=== PATIENT | male | born 1950 | race Caucasian/White ===

== ENCOUNTER 2019-03-06 11:27 | Inpatient (IN) | payer MEDICARE, MEDICAID ==
[2019-03-06 12:18] LABS: ADD MAN DIFF? NO
[2019-03-06 12:25] LABS: WHITE BLOOD COUNT 13.2 10^3/ul (4.8-10.8)
[2019-03-06 12:25] LABS: BASOPHIL # 0.1 10^3/ul (0.0-0.1); BASOPHILS % 0.5 % (0.0-2.0); EOSINOPHILS # 0.3 10^3/ul (0.0-0.5); EOSINOPHILS % 2.1 % (0.0-7.0); HEMATOCRIT 35.9 % (42.0-52.0); HEMOGLOBIN 11.9 g/dl (14.0-18.0); LYMPHOCYTES # 1.1 10^3/ul (0.8-2.9); LYMPHOCYTES % 8.1 % (15.0-51.0); MEAN CORPUSCULAR HEMOGLOBIN 30.7 pg (29.0-33.0); MEAN CORPUSCULAR HGB CONC 33.1 g/dl (32.0-37.0); MEAN CORPUSCULAR VOLUME 92.8 fl (82.0-101.0); MEAN PLATELET VOLUME 10.1 fl (7.4-10.4); MONOCYTE # 1.1 10^3/ul (0.3-0.9); NEUTROPHIL # 10.5 10^3/ul (1.6-7.5); NEUTROPHILS % 79.9 % (39.0-77.0); PLATELET COUNT 263 10^3/UL (140-415); RED BLOOD COUNT 3.87 10^6/ul (4.70-6.10); RED CELL DISTRIBUTION WIDTH 12.8 % (11.5-14.5)
[2019-03-06] MEDS: PIPER-TAZO 3.375 GM IV (PMX) 100 ML IVPB ×2 (12:26→20:02)
[2019-03-06 12:46] LABS: INR 1.04; PROTIME 13.7 Sec (11.9-14.9); PT RATIO 1.1
[2019-03-06 12:47] LABS: ALANINE AMINOTRANSFERASE 19 IU/L (13-69); ALBUMIN/GLOBULIN RATIO 0.97; ALKALINE PHOSPHATASE 120 IU/L (42-121); ANION GAP 12 (5-13); ASPARTATE AMINO TRANSFERASE 28 IU/L (15-46); BILIRUBIN,INDIRECT 0.1 mg/dl (0-1.1); BILIRUBIN,TOTAL 0.1 mg/dl (0.2-1.3); BLOOD UREA NITROGEN 21 mg/dl (7-20); CALCIUM 9.3 mg/dl (8.4-10.2); CARBON DIOXIDE 26 mmol/L (21-31); CHLORIDE 100 mmol/L (97-110); CREATININE 0.72 mg/dl (0.61-1.24); Estimated GFR > 60 mL/min (>60); GLUCOSE 256 mg/dl (70-220); PARTIAL THROMBOPLASTIN TIME 39.8 Sec (23.0-35.0); POTASSIUM 4.4 mmol/L (3.5-5.1); SODIUM 138 mmol/L (135-144); TOTAL PROTEIN 8.1 g/dl (6.1-8.1)
[2019-03-06 12:57] LABS: TROPONIN-I < 0.012 ng/ml (0.000-0.120)
[2019-03-06] MEDS: VANCOMYCIN 1 GM (PMX) 250 ML IVPB (13:26)
[2019-03-06] MEDS ORDERED: NACL 0.9% 3 ML SYG IV (17:00)
[2019-03-06] MEDS ORDERED: ZOLPIDEM 5 MG TAB PO (17:00)
[2019-03-06] MEDS ORDERED: ACETAMINOPHEN 325 MG TAB PO (17:00)
[2019-03-06] MEDS ORDERED: VANCOMYCIN IV PER PHARMACY XX (17:00)
[2019-03-06] MEDS ORDERED: ONDANSETRON 4 MG INJ IV (17:00)
[2019-03-06] MEDS ORDERED: HYDROCODONE/APAP (5/325) TAB PO (17:00)
[2019-03-06] MEDS ORDERED: DOCUSATE SODIUM 100 MG CAP PO (17:00)
[2019-03-06] MEDS ORDERED: morphine 2 MG INJ IV (17:00)
[2019-03-06] MEDS: INSULIN ASPART [NOVOLOG] 3 ML PEN SC ×3 (18:00→20:27)
[2019-03-06] MEDS ORDERED: GLUCOSE GEL 15 GRAM TUBE BUCCAL (20:00)
[2019-03-06] MEDS ORDERED: GLUCAGON 1 MG INJ IM (20:00)
[2019-03-06] MEDS ORDERED: DEXTROSE 50% 50 ML SYRINGE IV ×2 (20:00)
[2019-03-06] MEDS ORDERED: GLUCOSE GEL 15 GRAM TUBE PO ×2 (20:00)
[2019-03-06] MEDS: INSULIN GLARGINE [LANTus] (100 UNITS/ML) SYG SC (20:26)
[2019-03-06] MEDS ORDERED: PENDING SANTYL ORDER FOR WOUND CARE XX (22:00)
[2019-03-06] MEDS: ATORVASTATIN 10 MG TAB PO (22:17)
[2019-03-06] MEDS: HEPARIN 5,000 UNIT/1 ML VIAL SC (22:18)
[2019-03-06] MEDS: VANCOMYCIN HCL 1.25 GM in SOD CHLORIDE 0.9% 250 ML IVPB (22:28)
[2019-03-07] MEDS: PIPER-TAZO 3.375 GM IV (PMX) 100 ML IVPB ×4 (01:37→17:33)
[2019-03-07] MEDS: ACCU-CHEK XX (02:24)
[2019-03-07 05:44] LABS: ADD MAN DIFF? NO
[2019-03-07 05:50] LABS: WHITE BLOOD COUNT 10.3 10^3/ul (4.8-10.8)
[2019-03-07 05:50] LABS: BASOPHIL # 0.1 10^3/ul (0.0-0.1); BASOPHILS % 0.6 % (0.0-2.0); EOSINOPHILS # 0.4 10^3/ul (0.0-0.5); EOSINOPHILS % 3.9 % (0.0-7.0); HEMATOCRIT 34.3 % (42.0-52.0); HEMOGLOBIN 11.4 g/dl (14.0-18.0); LYMPHOCYTES # 1.4 10^3/ul (0.8-2.9); MEAN CORPUSCULAR HEMOGLOBIN 30.8 pg (29.0-33.0); MEAN CORPUSCULAR HGB CONC 33.2 g/dl (32.0-37.0); MEAN CORPUSCULAR VOLUME 92.7 fl (82.0-101.0); MONOCYTE # 0.9 10^3/ul (0.3-0.9); MONOCYTES % 8.6 % (0.0-11.0); NEUTROPHIL # 7.3 10^3/ul (1.6-7.5); NEUTROPHILS % 71.4 % (39.0-77.0); PLATELET COUNT 284 10^3/UL (140-415); RED CELL DISTRIBUTION WIDTH 12.6 % (11.5-14.5)
[2019-03-07 06:22] LABS: ANION GAP 7 (5-13); BLOOD UREA NITROGEN 12 mg/dl (7-20); CARBON DIOXIDE 26 mmol/L (21-31); CHLORIDE 106 mmol/L (97-110); CREATININE 0.56 mg/dl (0.61-1.24); Estimated GFR > 60 mL/min (>60); GLUCOSE 84 mg/dl (70-220); PHOSPHORUS 3.5 mg/dl (2.5-4.9); POTASSIUM 4.2 mmol/L (3.5-5.1); SODIUM 139 mmol/L (135-144)
[2019-03-07 06:58] LABS: HEMOGLOBIN A1C 10.1 % (0-5.9)
[2019-03-07] MEDS: INSULIN ASPART [NOVOLOG] 3 ML PEN SC ×7 (07:59→21:00)
[2019-03-07] MEDS: HEPARIN 5,000 UNIT/1 ML VIAL SC ×2 (08:44→21:00)
[2019-03-07] MEDS: ASPIRIN (EC) 81 MG TAB PO (08:46)
[2019-03-07] MEDS: AMLODIPINE 10 MG TAB PO (08:46)
[2019-03-07] MEDS: CLOPIDOGREL 75 MG TAB PO (08:47)
[2019-03-07] MEDS: METOPROLOL (XL) 100 MG TAB PO (08:50)
[2019-03-07] MEDS: VANCOMYCIN HCL 1.25 GM in SOD CHLORIDE 0.9% 250 ML IVPB ×2 (11:48→23:15)
[2019-03-07] MEDS: INSULIN GLARGINE [LANTus] (100 UNITS/ML) SYG SC (20:59)
[2019-03-07] MEDS: ATORVASTATIN 10 MG TAB PO (21:06)
[2019-03-07] MEDS: ZOLPIDEM 5 MG TAB PO (21:06)
[2019-03-08] MEDS: INSULIN ASPART [NOVOLOG] 3 ML PEN SC ×6 (01:29→19:24)
[2019-03-08] MEDS: ACCU-CHEK XX (02:19)
[2019-03-08] MEDS: PIPER-TAZO 3.375 GM IV (PMX) 100 ML IVPB ×5 (02:26→23:22)
[2019-03-08] MEDS ORDERED: SEVOFLURANE 15 MIN (07:00)
[2019-03-08] MEDS: CLOPIDOGREL 75 MG TAB PO (09:00)
[2019-03-08] MEDS: ASPIRIN (EC) 81 MG TAB PO (09:00)
[2019-03-08] MEDS: HEPARIN 5,000 UNIT/1 ML VIAL SC ×2 (09:00→20:56)
[2019-03-08] MEDS: AMLODIPINE 10 MG TAB PO (09:29)
[2019-03-08] MEDS: METOPROLOL (XL) 100 MG TAB PO (09:30)
[2019-03-08] MEDS: VANCOMYCIN HCL 1.25 GM in SOD CHLORIDE 0.9% 250 ML IVPB (11:00)
[2019-03-08 11:20] LABS: VANCOMYCIN,TROUGH 9.4 ug/ml (10.0-20.0)
[2019-03-08] MEDS ORDERED: FENTAnyl 50 MCG/ML VIAL (14:09)
[2019-03-08] MEDS: POLYMYXIN/BACITRACIN 1L IRRIG (14:27)
[2019-03-08] MEDS ORDERED: PROPOFOL 20 ML (15:05)
[2019-03-08] MEDS: DAKINS 0.0125%(1/40) 473 ML SOLUTION TP (17:10)
[2019-03-08] MEDS: VANCOMYCIN HCL 1.5 GM in SOD CHLORIDE 0.9% 250 ML IVPB (17:47)
[2019-03-08] MEDS: Insulin NOVOLOG SS MILD Algorithm (SS with meals and bedtime) SC (20:54)
[2019-03-08] MEDS: INSULIN GLARGINE [LANTus] (100 UNITS/ML) SYG SC (20:55)
[2019-03-08] MEDS: ATORVASTATIN 10 MG TAB PO (20:56)
[2019-03-08] MEDS ORDERED: INSULIN ASPART [NOVOLOG] 3 ML PEN SC (21:00)
[2019-03-09] MEDS: ZOLPIDEM 5 MG TAB PO ×2 (01:25→21:02)
[2019-03-09] MEDS: ACCU-CHEK XX (01:28)
[2019-03-09] MEDS: PIPER-TAZO 3.375 GM IV (PMX) 100 ML IVPB (05:15)
[2019-03-09] MEDS: VANCOMYCIN HCL 1.5 GM in SOD CHLORIDE 0.9% 250 ML IVPB (05:48)
[2019-03-09] MEDS: Insulin NOVOLOG SS MILD Algorithm (SS with meals and bedtime) SC ×4 (07:30→21:00)
[2019-03-09] MEDS: METOPROLOL (XL) 100 MG TAB PO (08:39)
[2019-03-09] MEDS: ASPIRIN (EC) 81 MG TAB PO (08:40)
[2019-03-09] MEDS: AMLODIPINE 10 MG TAB PO (08:40)
[2019-03-09] MEDS: CLOPIDOGREL 75 MG TAB PO (08:40)
[2019-03-09] MEDS: DAKINS 0.0125%(1/40) 473 ML SOLUTION TP (08:41)
[2019-03-09] MEDS: HEPARIN 5,000 UNIT/1 ML VIAL SC ×2 (08:45→21:03)
[2019-03-09] MEDS: INSULIN ASPART [NOVOLOG] 3 ML PEN SC ×3 (08:47→17:55)
[2019-03-09] MEDS: CEFAZOLIN 2 GM/50 ML (PMX) 50 ML IVPB ×2 (14:25→22:36)
[2019-03-09] MEDS: INSULIN GLARGINE [LANTus] (100 UNITS/ML) SYG SC (21:01)
[2019-03-09] MEDS: ATORVASTATIN 10 MG TAB PO (21:02)
[2019-03-10] MEDS: ACCU-CHEK XX (02:00)
[2019-03-10] MEDS: CEFAZOLIN 2 GM/50 ML (PMX) 50 ML IVPB ×3 (06:04→21:28)
[2019-03-10] MEDS: Insulin NOVOLOG SS MILD Algorithm (SS with meals and bedtime) SC ×4 (07:30→21:00)
[2019-03-10] MEDS: INSULIN ASPART [NOVOLOG] 3 ML PEN SC ×3 (09:08→18:08)
[2019-03-10] MEDS: HEPARIN 5,000 UNIT/1 ML VIAL SC ×2 (09:09→21:32)
[2019-03-10] MEDS: CLOPIDOGREL 75 MG TAB PO (09:11)
[2019-03-10] MEDS: METOPROLOL (XL) 100 MG TAB PO (09:11)
[2019-03-10] MEDS: ASPIRIN (EC) 81 MG TAB PO (09:11)
[2019-03-10] MEDS: AMLODIPINE 10 MG TAB PO (09:11)
[2019-03-10] MEDS: DAKINS 0.0125%(1/40) 473 ML SOLUTION TP (09:12)
[2019-03-10] MEDS: ZOLPIDEM 5 MG TAB PO (21:28)
[2019-03-10] MEDS: ATORVASTATIN 10 MG TAB PO (21:28)
[2019-03-10] MEDS: INSULIN GLARGINE [LANTus] (100 UNITS/ML) SYG SC (21:33)
[2019-03-11] MEDS: ACCU-CHEK XX (01:43)
[2019-03-11] MEDS: CEFAZOLIN 2 GM/50 ML (PMX) 50 ML IVPB ×3 (06:00→22:03)
[2019-03-11] MEDS: Insulin NOVOLOG SS MILD Algorithm (SS with meals and bedtime) SC ×4 (07:30→21:00)
[2019-03-11] MEDS: INSULIN ASPART [NOVOLOG] 3 ML PEN SC ×3 (08:44→17:48)
[2019-03-11] MEDS: CLOPIDOGREL 75 MG TAB PO (08:47)
[2019-03-11] MEDS: AMLODIPINE 10 MG TAB PO (08:48)
[2019-03-11] MEDS: METOPROLOL (XL) 100 MG TAB PO (08:49)
[2019-03-11] MEDS: ASPIRIN (EC) 81 MG TAB PO (08:49)
[2019-03-11] MEDS: HEPARIN 5,000 UNIT/1 ML VIAL SC ×2 (08:50→21:01)
[2019-03-11] MEDS: DAKINS 0.0125%(1/40) 473 ML SOLUTION TP (08:51)
[2019-03-11] MEDS: LIDOCAINE 1% (MPF) 5 ML VIAL SC (16:05)
[2019-03-11] MEDS: INSULIN GLARGINE [LANTus] (100 UNITS/ML) SYG SC (20:59)
[2019-03-11] MEDS: ATORVASTATIN 10 MG TAB PO (20:59)
[2019-03-11] MEDS: ZOLPIDEM 5 MG TAB PO (22:03)
[2019-03-12] MEDS: CEFAZOLIN 2 GM/50 ML (PMX) 50 ML IVPB ×3 (06:28→22:24)
[2019-03-12] MEDS: Insulin NOVOLOG SS MILD Algorithm (SS with meals and bedtime) SC ×4 (07:30→20:22)
[2019-03-12] MEDS: ASPIRIN (EC) 81 MG TAB PO (08:21)
[2019-03-12] MEDS: AMLODIPINE 10 MG TAB PO (08:21)
[2019-03-12] MEDS: CLOPIDOGREL 75 MG TAB PO (08:21)
[2019-03-12] MEDS: INSULIN ASPART [NOVOLOG] 3 ML PEN SC ×3 (08:23→17:52)
[2019-03-12] MEDS: METOPROLOL (XL) 100 MG TAB PO (08:26)
[2019-03-12] MEDS: HEPARIN 5,000 UNIT/1 ML VIAL SC ×2 (08:27→20:20)
[2019-03-12] MEDS: DAKINS 0.0125%(1/40) 473 ML SOLUTION TP (08:28)
[2019-03-12] MEDS: ATORVASTATIN 10 MG TAB PO (20:19)
[2019-03-12] MEDS: INSULIN GLARGINE [LANTus] (100 UNITS/ML) SYG SC (20:21)
[2019-03-13] MEDS: CEFAZOLIN 2 GM/50 ML (PMX) 50 ML IVPB ×2 (05:51→13:23)
[2019-03-13] MEDS: DAKINS 0.0125%(1/40) 473 ML SOLUTION TP (08:04)
[2019-03-13] MEDS: ASPIRIN (EC) 81 MG TAB PO (08:04)
[2019-03-13] MEDS: CLOPIDOGREL 75 MG TAB PO (08:04)
[2019-03-13] MEDS: INSULIN ASPART [NOVOLOG] 3 ML PEN SC ×3 (08:06→17:33)
[2019-03-13] MEDS: Insulin NOVOLOG SS MILD Algorithm (SS with meals and bedtime) SC ×4 (08:07→20:06)
[2019-03-13] MEDS: HEPARIN 5,000 UNIT/1 ML VIAL SC ×2 (08:07→20:07)
[2019-03-13] MEDS: AMLODIPINE 10 MG TAB PO (08:11)
[2019-03-13] MEDS: METOPROLOL (XL) 100 MG TAB PO (08:11)
[2019-03-13] MEDS: ATORVASTATIN 10 MG TAB PO (20:03)
[2019-03-13] MEDS: INSULIN GLARGINE [LANTus] (100 UNITS/ML) SYG SC (20:06)
== END 2019-03-13 21:50 | DRG 239 ==
LOC: E/R 11:27 → PP2 13:04
PROC: 0Y6M0ZB Detachment at Right Foot, Partial 2nd Ray, Open Approach (ICD-10-PCS; principal; 2019-03-08 14:00)
PROC: 0KBV0ZZ Excision of Right Foot Muscle, Open Approach (ICD-10-PCS; 2019-03-08 14:00)
PROC: 02HV33Z Insertion of Infusion Device into Superior Vena Cava, Percutaneous Approach (ICD-10-PCS; 2019-03-08 14:05)
DX: E11.52 Type 2 diabetes mellitus with diabetic peripheral angiopathy with gangrene (principal); J18.9 Pneumonia, unspecified organism; M86.8X7 Other osteomyelitis, ankle and foot; L03.115 Cellulitis of right lower limb; I96 Gangrene, not elsewhere classified; E11.69 Type 2 diabetes mellitus with other specified complication; E11.621 Type 2 diabetes mellitus with foot ulcer; L97.519 Non-pressure chronic ulcer of other part of right foot with unspecified severity; Z72.0 Tobacco use; I10 Essential (primary) hypertension; E78.5 Hyperlipidemia, unspecified
CPT/HCPCS: 36415; 36569; 71045; 73718; 76937; 80048; 80053; 80202; 82962; 83036; 83605; 83735; 84100; 84484; 85025; 85610; 85730; 87040-91; 87070; 87081; 88305; 88311; 93005; 93922; 96374; 99285-25